=== PATIENT | male | born 1990 | race Hispanic/Latino ===

== ENCOUNTER 2018-10-28 01:09 | Emergency (ER) | payer OTHER ==
[~2018-10-28] VITALS: Ht 177.8 cm; Wt 122.5 kg
--- OUTSIDE RECORDS SUMMARY | 2018-10-28 01:12 | XMS REPORT | Clinical Summary ---
Author Author [facility] Organization [facility] Address Unknown Phone Unavailable Care Team Providers Care Toby Maker Name Role Phone PCP Unavailable Allergies No Known Allergies Medications Not on file Active Problems Not on file Encounters Care Team Description Date Type Specialty Kobi Gallardo MD Diarrhea, unspecified type (Primary Dx) 02/18/2018 Emergency Emergency Medicine after 10/27/2017 Social History Date Tobacco Use Types Packs/Day Years Used Never Assessed Sex Assigned at Date Recorded Not on file Industry Job Start Date Occupation Not on file Not on file Not on file Travel End Travel History Travel Start No recent travel history available. Last Filed Vital Signs Reading Time Taken Comments Vital Sign 125/78 02/18/2018 2:46 PM CDT Blood Pressure 62 02/18/2018 2:46 PM CDT Pulse 36.8 C (98.2 F) 02/18/2018 2:46 PM CDT Temperature 16 02/18/2018 2:46 PM CDT Respiratory Rate 99% 02/18/2018 2:46 PM CDT Oxygen Saturation - - Inhaled Oxygen Concentration 122.4 kg (269 lb 14.4 oz) 02/18/2018 8:47 AM CDT Weight - - Height - - Body Mass Index Plan of Treatment Health Maintenance Due Date Last Done Comments IMM Influenza Seasonal 02/24/2019Feb to July (>/=19 yrs) Procedures Comments Procedure Name Priority Date/Time Associated Diagnosis BEDSIDE ULTRASOUND Routine 02/18/2018 2:12 PM CDT HIV-1/HIV-2 ROUTINE Routine 02/18/2018 SCREENING 12:04 PM CDT CBC/DIFF STAT 02/18/2018 12:04 PM CDT FREE T4 STAT 02/18/2018 12:04 PM CDT THYROID STIMULATING STAT 02/18/2018 HORMONE (TSH) 12:04 PM CDT LIPASE STAT 02/18/2018 12:04 PM CDT LIVER PROFILE STAT 02/18/2018 12:04 PM CDT URINALYSIS STAT 02/18/2018 11:17 AM CDT after 10/27/2017 Results * BEDSIDE ULTRASOUND (02/18/2018 2:12 PM CDT) Narrative Performed At Cassandra Couch PA 02/18/20182:25 PM Bedside Ultrasound Date/Time: 02/18/2018 2:20 PM Performed by: CASSANDRA COUCH Authorized by: CASSANDRA COUCH Consent: Consent obtained:Verbal Consent given by:Patient Indications: Indications:Intermittent RUQ pain after eating Comments: RUQ ultrasound performed and interpreted by me w/o evidence of cholecystitis, stone shadowing though no stone in neck. No sludge, PCCF. CBD not visualized. * HIV-1/HIV-2 ROUTINE SCREENING (02/18/2018 12:04 PM CDT) HIV-1/HIV-2 Negative NEG [facility] 4 Specimen Performing Organization Address [facility] [place]ISYS [facility] MA[facility] 4 * TSH (02/18/2018 12:04 PM CDT) TSH 4.96 (H) 0.57 - 3.74 uIU/mL [facility]IN[facility] 1 Specimen Blood Performing Organization Address [facility] [place] Number MISYS [facility] 1 * FREE T4 (02/18/2018 12:04 PM CDT) Free T4 0.76 0.61 - 1.18 ng/dl [facility]IN[facility] 1 Specimen Blood Performing Organization Address [facility] [place] Number [facility]IS[facility] 1 * LIVER PROFILE (02/18/2018 12:04 PM CDT) Protein, Total, 8.2 6.4 - 8.2 g/dL [facility] Serum MAIN-STATION 2 Albumin 4.2 3.4 - 5.0 g/dL [facility] 2 Bilirubin, 0.4 0.2 - 1.0 mg/dL [facility] Total MAIN-STATION 2 Alkaline 77 45 - 117 U/L [facility] Phosphatase, S MAIN-STATION 2 AST (SGOT) 50 (H) 15 - 37 U/L [facility] 2 ALT 61 12 - 78 U/L [facility] MAIN-STATION 2 D Bilirubin <0.1 0.0 - 0.2 mg/dL [facility] MAIN-STATION 2 Specimen Blood Performing Organization Address [facility]/Zipcode Phone Number [facility] MAIN-STATION 2 * LIPASE (02/18/2018 12:04 PM CDT) Lipase 83 73 - 393 U/L [facility] MAIN-STATION 2 Specimen Blood Performing Organization Address [facility] Phone Number [facility] MA[facility] 2 * CBC/DIFF (02/18/2018 12:04 PM CDT) WBC 6.6 4.5 - 12.0 K/uL [facility] MAIN-STATION 2 RBC 5.13 4.60 - 6.20 M/uL [facility] MAIN-STATION 2 Hemoglobin 15.0 14.0 - 18.0 g/dL [facility] MAIN-[facility] 2 Hematocrit 46.2 40.0 - 54.0 % [facility] MAIN-STATION 2 MCV 90 82 - 92 fL [facility] MAIN-ST[facility] 2 MCH 29.2 27.0 - 31.0 pg [facility] MAIN-STATION 2 MCHC 32.5 32.0 - 36.0 g/dL [facility] MAIN-STATION 2 RDW 39.8 35.1 - 43.9 fL [facility] MAIN-STATION 2 Platelets 206 150 - 400 K/uL [facility] MAIN-STATION 2 Mean Platelet 10.2 9.4 - 12.4 fL [facility] Volume MAIN-STATION 2 Percent NRBC 0.0 [facility] MAIN-STATION 2 Absolute NRBC 0.00 [facility] MAIN-[facility] 2 Neutrophils 59.3 34.0 - 67.9 % [facility] MAIN-ST[facility] 2 Lymphs 27.3 21.8 - 50.0 % [facility] 2 Monocytes 9.4 5.3 - 12.0 % [facility] 2 Eos 2.9 0.8 - 5.0 % [facility] 2 Basos 0.3 0.2 - 1.2 % [facility] 2 Immature 0.8 (H) 0.0 - 0.5 [facility] Granulocytes MAIN-STATION 2 Neutrophils 3.93 1.78 - 5.36 K/uL [facility] (Absolute) MAIN-ST[facility] 2 Lymphs 1.81 1.32 - 3.57 K/uL [facility] (Absolute) MAIN-STATION 2 Monocytes(Absol 0.62 0.30 - 0.82 K/uL [facility] [place]) MAIN-ST[facility] 2 Eos (Absolute) 0.19 0.04 - 0.54 K/uL [facility]IN-[facility] 2 Baso (Absolute) 0.02 0.01 - 0.08 K/uL [facility] 2 Immature Grans 0.05 (H) 0.00 - 0.03 K/uL [facility] (Abs) MAIN-STATION 2 Specimen Blood Performing Organization Address [facility] [place] Number [facility] MAIN-STATION 2 * UA CHEMISTRIES (02/18/2018 11:17 AM CDT) Color Yellow [facility] 2 Clarity Cloudy [facility] 2 Specific 1.020 1.001 - 1.035 [facility] [place] MAIN-ST[facility] 2 pH 7.0 5 - 8 [facility] 2 Protein Negative NEG [facility] 2 Glucose Negative NEG [facility] 2 Ketones Negative NEG [facility] 2 Bilirubin Negative NEG [facility] 2 Nitrate Negative NEG [facility] 2 Urobilinogen,Se <1.0 0.2 - 1.0 EU/dL [facility] mi-Qn MAIN-STATION 2 Leukocyte Negative NEG [facility] 2 Occult Blood Negative NEG [facility] 2 Specimen Urine Performing Organization Address [facility] [place] Phone Number MISYS [facility] MAIN-STATION 2 after 10/27/2017
--- OUTSIDE RECORDS SUMMARY | 2018-10-28 01:12 | XMS REPORT | Clinical Summary ---
Author Author [facility] Organization [facility] Address Unknown Phone Unavailable Care Team Providers Care Informatica Mdm Architect Name Role Phone Sharpless PCP Allergies No Known Allergies Medications End Date Status Medication Sig Dispensed Refills Start Date 07/27/2018 naproxen (NAPROSYN) 500 Take 1 tablet 30 tablet 0 07/27/201 MG tablet (500 mg 8 total) by mouth 2 (two) times daily with breakfast and dinner. 08/17/2018 predniSONE (DELTASONE) 20 Take 2 6 tablet 0 08/14/201 MG tablet tablets (40 9 mg total) by mouth daily for 3 days. Active Problems Not on file Encounters Care Team Description Date Type Specialty Bo Solo MD Elevated blood pressure reading (Primary Dx); Obesity, unspecified classification, unspecified obesity type, unspecified whether serious comorbidity present 10/15/2018 Emergency Emergency Medicine 10/15/2018 Travel Manuel Hinson MD Exposure to chemical irritant (Primary Dx); Cough; Nasal congestion; Sore throat 08/14/2018 Emergency Emergency Medicine 08/14/2018 Travel after 10/27/2017 Social History Date Tobacco Use Types Packs/Day Years Used Current Every Day Smoker Smokeless Tobacco: Never Used Alcohol Use Drinks/Week oz/Week Comments Yes Sex Assigned at Date Recorded Not on file Industry Job Start Date Occupation Not on file Not on file Not on file Travel End Travel History Travel Start 08/14/2018 [facility] 07/17/2018 Last Filed Vital Signs Time Taken Vital Sign Reading 10/15/2018 7:27 PM CDT Blood Pressure 136/80 10/15/2018 7:27 PM CDT Pulse 82 10/15/2018 7:27 PM CDT Temperature 36.9 C (98.4 F) 10/15/2018 7:27 PM CDT Respiratory Rate 18 10/15/2018 7:27 PM CDT Oxygen Saturation 99% - Inhaled Oxygen - Concentration 10/15/2018 7:36 PM CDT Weight 123.4 kg (272 lb) 10/15/2018 7:36 PM CDT Height 177.8 cm (5' 10") 10/15/2018 7:36 PM CDT Body Mass Index 39.03 Plan of Treatment Not on file Results Not on fileafter 10/27/2017
--- OUTSIDE RECORDS SUMMARY | 2018-10-28 01:13 | XMS REPORT | Continuity of Care Document ---
Author Author [facility] Interface Address Unknown Phone Unavailable Problems Problem Status Onset Date Classification Date Reported Comments Source Diarrhea, unspecified type Active 08/18/2018 [facility] Medications Medication Details Route Status Patient Instructions Ordering Provider Order Date Source Allergies, Adverse Reactions, Alerts Substance Category Reaction Severity Reaction type Status Date Reported Comments Source Immunizations Immunization Date Given Site Status Last Updated Comments Source Results Order Name Results Value Reference Range Date Interpretation Comments Source FREE T4 Free T4 0.76 ng/dl 0.61 - 1.18 02/18/2018 [facility] TSH TSH 4.96 0.57 - 3.74 02/18/2018 [facility] TSH Lab Interpretation Abnormal 02/18/2018 [facility] HIV-1/HIV-2 ROUTINE SCREENING HIV-1/HIV-2 Negative NEG 02/18/2018 [facility] BEDSIDE ULTRASOUND <p>Cassandra Couch PA 02/18/20182:25 PM</p><p>Bedside Ultrasound</p><p>Date/Time: 02/18/2018 2:20 PM</p><p>Performed by: CASSANDRA COUCH</p><p>Authorized by: CASSANDRA COUCH </p><p> </p><p>Consent: </p><p>Consent obtained:Verbal</p><p>Consent given by:Patient</p><p>Indications: </p><p&gt ;Indications:Intermittent RUQ pain after eating</p><p>Comments: </p><p> RUQ ultrasound performed and interpreted by me w/o evidence of </p><p>cholecystitis, stone shadowing though no stone in neck. No sludge, PCCF. </p><p>CBD not visualized.</p> Cassandra Couch PA 02/18/20182:25 PM Bedside Ultrasound Date/Time: 02/18/2018 2:20 PM Performed by: CASSANDRA COUCH Authorized by: CASSANDRA COUCH Consent: Consent obtained:Verbal Consent given by:Patient Indications: Indications:Intermittent RUQ pain after eating Comments: RUQ ultrasound performed and interpreted by me w/o evidence of cholecystitis, stone shadowing though no stone in neck. No sludge, PCCF. CBD not visualized. 02/18/2018 [facility] LIPASE Lipase 83 U/L 73 - 393 02/18/2018 [facility] LIVER PROFILE T Protein 8.2 g/dL 6.4 - 8.2 02/18/2018 [facility] LIVER PROFILE Albumin 4.2 g/dL 3.4 - 5 02/18/2018 [facility] LIVER PROFILE T Bilirubin 0.4 mg/dL 0.2 - 1 02/18/2018 [facility] LIVER PROFILE Alk Phos 77 U/L 45 - 117 02/18/2018 [facility] LIVER PROFILE AST 50 U/L 15 - 37 02/18/2018 [facility] LIVER PROFILE ALT 61 U/L 12 - 78 02/18/2018 [facility] LIVER PROFILE D Bilirubin <0.1 0 - 0.2 02/18/2018 [facility] LIVER PROFILE Lab Interpretation Abnormal 02/18/2018 [facility] CBC/DIFF WBC 6.6 K/uL 4.5 - 12 02/18/2018 [facility] CBC/DIFF RBC 5.13 4.60 - 6.20 02/18/2018 [facility] CBC/DIFF Hemoglobin 15.0 g/dL 14 - 18 02/18/2018 [facility] CBC/DIFF Hematocrit 46.2 % 40 - 54 02/18/2018 [facility] CBC/DIFF MCV 90 fL 82 - 92 02/18/2018 [facility] CBC/DIFF MCH 29.2 pg 27 - 31 02/18/2018 [facility] CBC/DIFF MCHC 32.5 g/dL 32 - 36 02/18/2018 [facility] CBC/DIFF RDW 39.8 fL 35.1 - 43.9 02/18/2018 [facility] CBC/DIFF Platelet 206 K/uL 150 - 400 02/18/2018 [facility] CBC/DIFF Mean Platelet Volume 10.2 fL 9.4 - 12.4 02/18/2018 [facility] CBC/DIFF Percent NRBC 0.0 02/18/2018 [facility] CBC/DIFF Absolute NRBC 0.00 02/18/2018 [facility] CBC/DIFF Neutrophil 59.3 % 34 - 67.9 02/18/2018 [facility] CBC/DIFF Lymphocyte 27.3 % 21.8 - 50 02/18/2018 [facility] CBC/DIFF Monocyte 9.4 % 5.3 - 12 02/18/2018 [facility] CBC/DIFF Eosinophil 2.9 % 0.8 - 5 02/18/2018 [facility] CBC/DIFF Basophil 0.3 % 0.2 - 1.2 02/18/2018 [facility] CBC/DIFF Pct Immat Gran 0.8 0.0 - 0.5 02/18/2018 [facility] CBC/DIFF Neutrophil, Abs 3.93 K/uL 1.78 - 5.36 02/18/2018 [facility] CBC/DIFF Lymphocyte, Abs 1.81 K/uL 1.32 - 3.57 02/18/2018 [facility] CBC/DIFF Monocyte, Abs 0.62 K/uL 0.3 - 0.82 02/18/2018 [facility] CBC/DIFF Eosinophil, Abs 0.19 K/uL 0.04 - 0.54 02/18/2018 [facility] CBC/DIFF Basophil, Abs 0.02 K/uL 0.01 - 0.08 02/18/2018 [facility] CBC/DIFF Absol Immat Gran 0.05 K/uL 0 - 0.03 02/18/2018 [facility] CBC/DIFF Lab Interpretation Abnormal 02/18/2018 [facility] UA CHEMISTRIES Color Yellow 02/18/2018 [facility] UA CHEMISTRIES Clarity Cloudy 02/18/2018 [facility] UA CHEMISTRIES Spec [place] 1.020 1.001 - 1.035 02/18/2018 [facility] UA CHEMISTRIES pH 7.0 5 - 8 02/18/2018 [facility] UA CHEMISTRIES Protein Negative NEG 02/18/2018 [facility] UA CHEMISTRIES Glucose Negative NEG 02/18/2018 [facility] UA CHEMISTRIES Ketone Negative NEG 02/18/2018 [facility] UA CHEMISTRIES Bilirubin Negative NEG 02/18/2018 [facility] UA CHEMISTRIES Nitrate Negative NEG 02/18/2018 [facility] UA CHEMISTRIES Urobilinogen <1.0 0.2 - 1 02/18/2018 [facility] UA CHEMISTRIES Leukocyte Negative NEG 02/18/2018 [facility] UA CHEMISTRIES Blood Negative NEG 02/18/2018 [facility] Vital Signs Vital Sign Value Date Comments Source Systolic (mm Hg) 125 02/18/2018 [facility] Diastolic (mm Hg) 78 02/18/2018 [facility] Heart Rate 62 02/18/2018 [facility] Temperature Oral (F) 36.78 Rupal 02/18/2018 [facility] Respitory Rate 16 02/18/2018 [facility] Systolic (mm Hg) 143 02/18/2018 [facility] Diastolic (mm Hg) 99 02/18/2018 [facility] Heart Rate 67 02/18/2018 [facility] Temperature Oral (F) 36.89 Rupal 02/18/2018 [facility] Respitory Rate 18 02/18/2018 [facility] Weight 122.426 02/18/2018 [facility] Encounters Location Location Details Encounter Type Encounter Number Reason For Visit Attending Provider ADM Date DC Date Status Source Emergency [facility] ([id number] Emergency [id number] Kobi Gallardo MD 02/18/2018 02/18/2018 [facility] Procedures Procedure Code Date Perfomer Comments Source BEDSIDE ULTRASOUND [id number] 02/19/2018 [facility] LIVER PROFILE [id number] 02/18/2018 [facility] LIPASE [id number] 02/18/2018 [facility] TSH [id number] 02/18/2018 [facility] FREE T4 [id number] 02/18/2018 [facility] CBC/DIFF [id number] 02/18/2018 [facility] HIV-1/HIV-2 ROUTINE SCREENING [id number] 02/18/2018 [facility] UA CHEMISTRIES [id number] 02/18/2018 [facility]
--- OUTSIDE RECORDS SUMMARY | 2018-10-28 01:13 | XMS REPORT | Clinical Summary ---
Author Author [facility] Organization [facility] Address Unknown Phone Unavailable Care Team Providers Care Gas Pumping Station Helper Name Role Phone PCP Unavailable Allergies No Known Allergies Current Medications Not on file Active Problems Not on file Encounters Date Type Specialty Care Team Description 02/18/2018 Emergency Emergency Medicine Kobi Gallardo MD Diarrhea, unspecified type (Primary Dx) after 02/19/2017 Social History Tobacco Use Types Packs/Day Years Used Date Never Assessed Sex Assigned at Date Recorded Not on file Last Filed Vital Signs Vital Sign Reading Time Taken Blood Pressure 125/78 02/18/2018 2:46 PM CDT Pulse 62 02/18/2018 2:46 PM CDT Temperature 36.8 C (98.2 F) 02/18/2018 2:46 PM CDT Respiratory Rate 16 02/18/2018 2:46 PM CDT Oxygen Saturation 99% 02/18/2018 2:46 PM CDT Inhaled Oxygen - - Concentration Weight 122.4 kg (269 lb 14.4 oz) 02/18/2018 8:47 AM CDT Height - - Body Mass Index - - Plan of Treatment Health Maintenance Due Date Last Done Comments IMM Influenza Seasonal 02/24/2018Feb to July (>/=19 yrs) Procedures Procedure Name Priority Date/Time Associated Diagnosis Comments BEDSIDE ULTRASOUND Routine 02/18/2018 Results for this 2:12 PM CDT procedure are in the results section. HIV-1/HIV-2 ROUTINE Routine 02/18/2018 Results for this SCREENING 12:04 PM CDT procedure are in the results section. CBC/DIFF STAT 02/18/2018 Results for this 12:04 PM CDT procedure are in the results section. FREE T4 STAT 02/18/2018 Results for this 12:04 PM CDT procedure are in the results section. TSH STAT 02/18/2018 Results for this 12:04 PM CDT procedure are in the results section. LIPASE STAT 02/18/2018 Results for this 12:04 PM CDT procedure are in the results section. LIVER PROFILE STAT 02/18/2018 Results for this 12:04 PM CDT procedure are in the results section. UA CHEMISTRIES STAT 02/18/2018 Results for this 11:17 AM CDT procedure are in the results section. after 02/19/2017 Results * BEDSIDE ULTRASOUND (02/18/2018 2:12 PM) Narrative Performed At Cassandra Couch PA 02/18/20182:25 [...] visualized. * HIV-1/HIV-2 ROUTINE SCREENING (02/18/2018 12:04 PM) HIV-1/HIV-2 Negative NEG [facility] MAIN-STATION 4 Performing Organization Address [facility] [place] Phone Number MISYS [facility] MAIN-STATION 4 * TSH (02/18/2018 12:04 PM) TSH 4.96 (H) 0.57 - 3.74 uIU/mL [facility] MAIN-STATION 1 Specimen Blood Performing Organization Address [facility] [place] Phone Number MISYS [facility] MAIN-STATION 1 * FREE T4 (02/18/2018 12:04 PM) Free T4 0.76 0.61 - 1.18 ng/dl [facility] MAIN-STATION 1 Specimen Blood Performing Organization Address [facility] [place] Phone Number MISYS [facility] 1 * LIVER PROFILE (02/18/2018 12:04 PM) T Protein 8.2 6.4 - 8.2 g/dL [facility] MAIN-STATION 2 Albumin 4.2 3.4 - 5.0 g/dL [facility] MAIN-ST[facility] 2 T Bilirubin 0.4 0.2 - 1.0 mg/dL [facility] MAIN-ST[facility] 2 Alk Phos 77 45 - 117 U/L [facility] MAIN-STATION 2 AST 50 (H) 15 - 37 U/L [facility] MAIN-STATION 2 ALT 61 12 - 78 U/L [facility] MAIN[facility] 2 D Bilirubin <0.1 0.0 - 0.2 mg/dL [facility] MAIN[facility] 2 Specimen Blood Performing Organization Address [facility] * LIPASE (02/18/2018 12:04 PM) Lipase 83 73 - 393 U/L [facility] 2 Specimen Blood Performing Organization Address [facility] Phone [facility] 2 * CBC/DIFF (02/18/2018 12:04 PM) WBC 6.6 4.5 - 12.0 K/uL [facility] 2 RBC 5.13 4.60 - 6.20 M/uL [facility] [place] [facility] Hemoglobin 15.0 14.0 - 18.0 g/dL [facility] [place] 2 Hematocrit 46.2 40.0 - 54.0 % [facility] 2 MCV 90 82 - 92 fL [facility] [place] 2 MCH 29.2 27.0 - 31.0 pg [facility] [place] 2 MCHC 32.5 32.0 - 36.0 g/dL [facility] [place] 2 RDW 39.8 35.1 - 43.9 fL [facility] MAINSTATION 2 Platelet 206 150 - 400 K/uL [facility] [place] 2 Mean Platelet Volume 10.2 9.4 - 12.4 fL [facility] MAINSTATION 2 Percent NRBC 0.0 [facility]INST[facility] 2 Absolute NRBC 0.00 [facility] 2 Neutrophil 59.3 34.0 - 67.9 % [facility] MAIN-ST[facility] 2 Lymphocyte 27.3 21.8 - 50.0 % [facility] MAIN[facility] 2 Monocyte 9.4 5.3 - 12.0 % [facility] MAIN-ST[facility] 2 Eosinophil 2.9 0.8 - 5.0 % [facility] MAIN-ST[facility] 2 Basophil 0.3 0.2 - 1.2 % [facility] 2 Pct Immat Gran 0.8 (H) 0.0 - 0.5 [facility] MAIN-STATION 2 Neutrophil, Abs 3.93 1.78 - 5.36 K/uL [facility]IN[facility] 2 Lymphocyte, Abs 1.81 1.32 - 3.57 K/uL [facility] 2 Monocyte, Abs 0.62 0.30 - 0.82 K/uL [facility] 2 Eosinophil, Abs 0.19 0.04 - 0.54 K/uL [facility] 2 Basophil, Abs 0.02 0.01 - 0.08 K/uL [facility] 2 Absol Immat Gran 0.05 (H) 0.00 - 0.03 K/uL [facility] 2 Specimen Blood Performing Organization Address [facility] Phone Number [facility] MAIN-STATION 2 * UA CHEMISTRIES (02/18/2018 11:17 AM) Color Yellow [facility] 2 Clarity Cloudy [facility] 2 Spec [place] 1.020 1.001 - 1.035 [facility] 2 pH 7.0 5 - 8 [facility] 2 Protein Negative NEG [facility] 2 Glucose Negative NEG [facility] 2 Ketone Negative NEG [facility] 2 Bilirubin Negative NEG [facility] 2 Nitrate Negative NEG [facility] 2 Urobilinogen <1.0 0.2 - 1.0 EU/dL [facility] 2 Leukocyte Negative NEG [facility] 2 Blood Negative NEG [facility] 2 Specimen Urine Performing Organization Address [facility] Phone Number [facility] MAIN-STATION 2 after 02/19/2017
--- OUTSIDE RECORDS SUMMARY | 2018-10-28 01:13 | XMS REPORT ---
[facility] Address Unknown Phone Unavailable Care Team Providers Care Dipper And Baker Name Role Phone ALVA ZHENG Unavailable Unavailable REBEKAH, WILL Unavailable Unavailable Payers Payer Name Policy Type Policy Number Effective Date Expiration Date Problems This patient has no known problems. Allergies, Adverse Reactions, Alerts Allergy Name Allergy Type Status Severity Reaction(s) Onset Date Inactive Date Treating Clinician Comments No Known Allergies DA Active U 2018-04-18 00:00:00 No Known Contrast Allergies DA Active U 2005-02-13 00:00:00 No Known Drug Allergies DA Active U 2005-02-13 00:00:00 No Known Food Allergies DA Active U 2005-02-13 00:00:00 No Known Other Allergies DA Active U 2005-02-13 00:00:00 Medications This patient has no known medications. Encounters Start Date/Time End Date/Time Encounter Type Admission Type Attending Clinicians Care Facility Care Department Encounter ID 2018-02-18 11:04:36 2018-02-18 11:04:36 Emergency [facility] MED [id number] Results Test Description Test Time Test Comments Text Results Atomic Results Result Comments RAD, FOOT, MIN 3 VIEWS, LEFT 2017-07-27 05:07:00 Reason for exam:->FOOT PAINReason for exam:->dog bite 18 hours ago, worsening pain and swellingShould this be performed at the bedside?->No FINAL REPORT RAD, FOOT, MIN 3 VIEWS, LEFT CLINICAL INDICATION: Dog bite 18 hours ago with worsening foot pain and swelling. COMPARISON: None FINDINGS: Frontal, oblique and lateral views of the left foot were obtained. There is mild diffuse swelling soft tissue swelling. There are small soft tissue lucencies in the dorsum and lateral aspect of the foot, which may represent gas. There is no radiographic evidence for osteomyelitis. There is no acute fracture or dislocation. The joint spaces are maintained. IMPRESSION: Mild diffuse swelling soft tissue swelling. Small soft tissue lucencies in the dorsum and lateral aspect of the foot, which may represent gas. No acute fracture. Signed: Gladys Berryort Verified Date/Time: 07/27/2017 05:07:00 Reading Location: [facility] C0T Transitional Reading Room , CHEST, 2 VIEWS 2017-06-20 15:38:00 Reason for exam:->coughShould this be performed at the bedside?->No FINAL REPORT CLINICAL HISTORY: cough TECHNIQUE: 2 views of the chest COMPARISON: None IMPRESSION: There are no focal infiltrates or effusions. The cardiomediastinal silhouette is within normal limits for size. The osseous structures appear intact. Signed: Zoran Barreto Verified Date/Time: 06/20/2017 15:38:23 Reading Location: [facility] C013W Consult Reading Room REHENSIVE METABOLIC PANEL 2016-12-18 22:38:00 TOTAL PROTEIN (BEAKER) (test ylts=341) 7.0 gm/dL 6.0-8.5 ALBUMIN (BEAKER) (test edop=2640) 4.0 g/dL 3.5-5.0 ALKALINE PHOSPHATASE (BEAKER) (test liko=468) 84 U/L 30-115 BILIRUBIN TOTAL (BEAKER) (test fvtl=429) 0.3 mg/dL 0.1-1.2 SODIUM (BEAKER) (test lken=681) 141 meq/L 135-148 POTASSIUM (BEAKER) (test qtmy=633) 4.2 meq/L 3.6-5.5 CHLORIDE (BEAKER) (test pucm=289) 105 meq/L 98-106 CO2 (BEAKER) (test szcb=227) 27 meq/L 24-32 BLOOD UREA NITROGEN (BEAKER) (test zfxv=014) 10 mg/dL 10-26 CREATININE (BEAKER) (test kicx=716) 0.73 mg/dL 0.50-1.20 GLUCOSE RANDOM (BEAKER) (test hwku=411) 94 mg/dL 70-110 CALCIUM (BEAKER) (test xnop=551) 8.5 mg/dL 8.5-10.5 AST (SGOT) (BEAKER) (test fqpe=883) 31 U/L 5-40 ALT (SGPT) (BEAKER) (test quog=001) 52 U/L 5-50 EGFR (BEAKER) (test ohyk=5761) mL/min/1.73 sq m INSUFFICIENT CLINICAL DATA TO CALCULATE ESTIMATED GFR. [id number] 22:36:00* Test Item Value Reference Range Comments LIPASE (BEAKER) (test qply=351) 62 U/L 40-240 CBC W/PLT COUNT & AUTO [id number] 22:26:00* Test Item Value Reference Range Comments WHITE BLOOD CELL COUNT (BEAKER) (test vehb=280) 8.1 10e3/ L 4.0-10.0 RED BLOOD CELL COUNT (BEAKER) (test ubov=418) 4.96 10e6/ L 4.20-5.80 HEMOGLOBIN (BEAKER) (test xjio=479) 14.5 g/dL 13.0-16.8 HEMATOCRIT (BEAKER) (test zrhr=766) 43.9 % 40.0-50.0 MEAN CORPUSCULAR VOLUME (BEAKER) (test qbrc=374) 88.4 fL 82.0-98.0 MEAN CORPUSCULAR HEMOGLOBIN (BEAKER) (test lnrv=895) 29.2 pg 27.0-33.0 MEAN CORPUSCULAR HEMOGLOBIN CONC (BEAKER) (test lnnx=138) 33.1 g/dL 32.0-36.0 RED CELL DISTRIBUTION WIDTH (BEAKER) (test nlbr=870) 12.0 % 10.3-14.2 PLATELET COUNT (BEAKER) (test gnan=153) 215 10e3/ L 150-430 MEAN PLATELET VOLUME (BEAKER) (test vmyd=752) 7.3 fL 6.5-10.5 NEUTROPHILS RELATIVE PERCENT (BEAKER) (test lyue=278) 49 % LYMPHOCYTES RELATIVE PERCENT (BEAKER) (test grpr=360) 36 % MONOCYTES RELATIVE PERCENT (BEAKER) (test vikc=244) 10 % EOSINOPHILS RELATIVE PERCENT (BEAKER) (test mfqo=603) 5 % BASOPHILS RELATIVE PERCENT (BEAKER) (test itsm=556) 1 % NEUTROPHILS ABSOLUTE COUNT (BEAKER) (test yutk=115) 3.95 10e3/ L 1.80-8.00 LYMPHOCYTES ABSOLUTE COUNT (BEAKER) (test tivf=559) 2.93 10e3/ L 1.48-4.50 MONOCYTES ABSOLUTE COUNT (BEAKER) (test qtvd=086) 0.78 10e3/ L 0.00-1.30 EOSINOPHILS ABSOLUTE COUNT (BEAKER) (test arbt=009) 0.41 10e3/ L 0.00-0.50 BASOPHILS ABSOLUTE COUNT (BEAKER) (test emub=776) 0.07 10e3/ L 0.00-0.20 MONONUCLEOSIS [id number] 19:54:00* Test Item Value Reference Range Comments HETEROPHILE ANTIBODIES (BEAKER) (test ejzd=063) Negative Negative RAPID STREP A [id number] 19:16:00* Test Item Value Reference Range Comments STREP A ANTIGEN (BEAKER) (test jpbm=235) Positive Negative
--- OUTSIDE RECORDS SUMMARY | 2018-10-28 01:13 | XMS REPORT | Clinical Summary ---
Author Author [facility] Organization [facility] Address Unknown Phone Unavailable Care Team Providers Care Parts Remover Name Role Phone PCP Unavailable Allergies No Known Allergies Medications Not on file Active Problems Not on file Encounters Care Team Description Date Type Specialty Kobi Gallardo MD Diarrhea, unspecified type (Primary Dx) 02/18/2018 Emergency Emergency Medicine after 08/17/2017 Social History Date Tobacco Use Types Packs/Day Years Used Never Assessed Sex Assigned at Date Recorded Not on file Industry Job Start Date Occupation Not on file Not on file Not on file Travel End Travel History Travel Start No recent travel history available. Last Filed Vital Signs Time Taken Vital Sign Reading 02/18/2018 2:46 PM CDT Blood Pressure 125/78 02/18/2018 2:46 PM CDT Pulse 62 02/18/2018 2:46 PM CDT Temperature 36.8 C (98.2 F) 02/18/2018 2:46 PM CDT Respiratory Rate 16 02/18/2018 2:46 PM CDT Oxygen Saturation 99% - Inhaled Oxygen - Concentration 02/18/2018 8:47 AM CDT Weight 122.4 kg (269 lb 14.4 oz) - Height - - Body Mass Index - Plan of Treatment Health Maintenance Due Date Last Done Comments IMM Influenza Seasonal 02/24/2018 Oct to July (>/=19 yrs) Procedures Comments Procedure Name Priority Date/Time Associated Diagnosis BEDSIDE ULTRASOUND Routine 02/18/2018 2:12 PM CDT HIV-1/HIV-2 ROUTINE Routine 02/18/2018 SCREENING 12:04 PM CDT CBC/DIFF STAT 02/18/2018 12:04 PM CDT FREE T4 STAT 02/18/2018 12:04 PM CDT TSH STAT 02/18/2018 12:04 PM CDT LIPASE STAT 02/18/2018 12:04 PM CDT LIVER PROFILE STAT 02/18/2018 12:04 PM CDT UA CHEMISTRIES STAT 02/18/2018 11:17 AM CDT after 08/17/2017 Results * BEDSIDE ULTRASOUND (02/18/2018 2:12 PM [...] CDT) HIV-1/HIV-2 Negative NEG [facility] MAIN-STATION 4 Performing Organization Address [facility] [place] Number [facility] MAIN-STATION 4 * TSH (02/18/2018 12:04 PM CDT) TSH 4.96 (H) 0.57 - 3.74 uIU/mL BT MAIN-STATION 1 Specimen Blood Performing Organization Address [facility] Phone Number M[facility]YS [facility] MAIN-STATION 1 * FREE T4 (02/18/2018 12:04 PM CDT) Free T4 0.76 0.61 - 1.18 ng/dl [facility] MAIN-STATION 1 Specimen Blood Performing Organization Address [facility] Phone Number MISYS [facility] MAIN-STATION 1 * LIVER PROFILE (02/18/2018 12:04 PM CDT) T Protein 8.2 6.4 - 8.2 g/dL J MAIN-STATION 2 Albumin 4.2 3.4 - 5.0 g/dL [facility] MAIN-STATION 2 T Bilirubin 0.4 0.2 - 1.0 mg/dL [facility] MAIN-STATION 2 Alk Phos 77 45 - 117 U/L [facility]IN-STATION 2 AST 50 (H) 15 - 37 U/L [facility]IN-STATION 2 ALT 61 12 - 78 U/L [facility] MAIN-STATION 2 D Bilirubin <0.1 0.0 - 0.2 mg/dL [facility] MAIN-STATION 2 Specimen Blood Performing Organization Address City/[facility]/Zipcode Phone Number [facility] MAIN-STATION 2 * LIPASE (02/18/2018 12:04 PM CDT) Lipase 83 73 - 393 U/L LB MAIN-STATION 2 Specimen Blood Performing Organization Address City/[facility]/Zipcode Phone Number [facility] MAIN-STATION 2 * CBC/DIFF (02/18/2018 12:04 PM CDT) WBC 6.6 4.5 - 12.0 K/uL [facility] MAIN-STATION 2 RBC 5.13 4.60 - 6.20 M/uL [facility] MAIN-STATION 2 Hemoglobin 15.0 14.0 - 18.0 g/dL [facility] MAIN-STATION 2 Hematocrit 46.2 40.0 - 54.0 % [facility] MAIN-STATION 2 MCV 90 82 - 92 fL [facility] MAIN-STATION 2 MCH 29.2 27.0 - 31.0 pg [facility] MAIN-STATION 2 MCHC 32.5 32.0 - 36.0 g/dL [facility] MAIN-STATION 2 RDW 39.8 35.1 - 43.9 fL [facility] MAIN-STATION 2 Platelet 206 150 - 400 K/uL LB MAIN-STATION 2 Mean Platelet 10.2 9.4 - 12.4 fL [facility] Volume MAIN-STATION 2 Percent NRBC 0.0 [facility]IN-STATION 2 Absolute NRBC 0.00 [facility]-STATION 2 Neutrophil 59.3 34.0 - 67.9 % [facility] 2 Lymphocyte 27.3 21.8 - 50.0 % [facility]-STATION 2 Monocyte 9.4 5.3 - 12.0 % [facility]IN-STATION 2 Eosinophil 2.9 0.8 - 5.0 % [facility]-STATION 2 Basophil 0.3 0.2 - 1.2 % [facility]IN-STATION 2 Pct Immat Gran 0.8 (H) 0.0 - 0.5 [facility] MAIN-STATION 2 Neutrophil, Abs 3.93 1.78 - 5.36 K/uL [facility] MAIN-STATION 2 Lymphocyte, Abs 1.81 1.32 - 3.57 K/uL [facility] MAIN-STATION 2 Monocyte, Abs 0.62 0.30 - 0.82 K/uL [facility] MAIN-STATION 2 Eosinophil, Abs 0.19 0.04 - 0.54 K/uL [facility] MAIN-STATION 2 Basophil, Abs 0.02 0.01 - 0.08 K/uL [facility] MAIN-STATION 2 Absol Immat 0.05 (H) 0.00 - 0.03 K/uL [facility] Gran MAIN-STATION 2 Specimen Blood Performing Organization Address [place]/[facility] Phone [facility] MAIN-STATION 2 * UA CHEMISTRIES (02/18/2018 11:17 AM CDT) Color Yellow [facility] MAIN-STATION 2 Clarity Cloudy [facility] MAIN-STATION 2 Spec [place] 1.020 1.001 - 1.035 [facility] MAIN-STATION 2 [...] MAIN-STATION 2 Specimen Urine Performing Organization Address [place]/[facility] Phone Number [facility] MAIN-STATION 2 after 08/17/2017
--- OUTSIDE RECORDS SUMMARY | 2018-10-28 01:13 | XMS REPORT | Clinical Summary ---
Author Author [facility] Organization [facility] Address Unknown Phone Unavailable Care Team Providers Care Unpaid Intern Name Role Phone PCP Unavailable Allergies No Known Allergies Current Medications Not on file Active Problems Not on file Encounters Date Type Specialty Care Team Description 02/18/2018 Emergency Emergency Medicine after 02/17/2017 Social History Tobacco Use Types Packs/Day Years Used Date Never Assessed Sex Assigned at Date Recorded Not on file Last Filed Vital Signs Vital Sign Reading Time Taken Blood Pressure 143/99 02/18/2018 8:47 AM CDT Pulse 67 02/18/2018 8:47 AM CDT Temperature 36.9 C (98.4 F) 02/18/2018 8:47 AM CDT Respiratory Rate 18 02/18/2018 8:47 AM CDT Oxygen Saturation 99% 02/18/2018 8:47 AM CDT Inhaled Oxygen - - Concentration Weight 122.4 kg (269 lb 14.4 oz) 02/18/2018 8:47 AM CDT Height - - Body Mass Index - - Plan of Treatment Health Maintenance Due Date Last Done Comments IMM Influenza Seasonal 02/24/2018Feb to July (>/=19 yrs) Results Not on fileafter 02/17/2017
[2018-10-28 01:59] LABS: BASOPHILS % 0.3 % (0.0-1.0); EOSINOPHILS # (AUTO) 0.3 (0.0-0.4); EOSINOPHILS % 3.7 % (0.0-6.0); HEMATOCRIT 42.3 % (38.2-49.6); HEMOGLOBIN 14.5 g/dL (14.0-18.0); LYMPHOCYTES % 44.2 % (18.0-39.1); MEAN CORPUSCULAR HEMOGLOBIN 29.8 pg (28-32); MEAN CORPUSCULAR HGB CONC 34.3 g/dL (31-35); MEAN CORPUSCULAR VOLUME 86.9 fL (81-99); MONOCYTES # (AUTO) 0.7 (0.2-0.8); MONOCYTES % 11.1 % (4.4-11.3); NEUTROPHILS # (AUTO) 2.7 (2.1-6.9); NEUTROPHILS % 40.1 % (38.7-80.0); PLATELET COUNT 227 x10e3/uL (140-360); RED BLOOD COUNT 4.87 x10e6/uL (4.3-5.7); RED CELL DISTRIBUTION WIDTH 12.3 % (11.7-14.4)
[2018-10-28 02:18] LABS: ALANINE AMINOTRANSFERASE 96 IU/L (0-55); ALBUMIN 3.8 g/dL (3.5-5.0); ALBUMIN/GLOBULIN RATIO 1.2 (0.8-2.0); ALKALINE PHOSPHATASE 74 IU/L (40-150); ANION GAP 10.6 mmol/L (8-16); BLOOD UREA NITROGEN 10 mg/dL (7-26); BUN/CREATININE RATIO 15 (6-25); CALCIUM 9.1 mg/dL (8.4-10.2); CARBON DIOXIDE 24 mmol/L (22-29); CHLORIDE 105 mmol/L (98-107); CREATINE KINASE 131 IU/L (30-200); CREATININE, SERUM 0.68 mg/dL (0.72-1.25); EST GLOMERULAR FILTRATION RATE > 60 ML/MIN (60-); GLUCOSE 105 mg/dL (74-118); POTASSIUM 3.6 mmol/L (3.5-5.1); SODIUM 136 mmol/L (136-145)
--- NOTE | 2018-10-28 02:36 | Diagnostic Imaging Report ---
EXAMINATION: CHEST SINGLE (PORTABLE) INDICATION: ^CHEST PAIN ^[id number] ^0207 ^Y COMPARISON: None FINDINGS: AP view TUBES and LINES: None. LUNGS: Limited by body habitus and low lung volumes. There is no evidence of pneumonia or pulmonary edema. PLEURA: No pleural effusion or pneumothorax. HEART AND MEDIASTINUM: The cardiomediastinal silhouette is unremarkable for the technique. BONES AND SOFT TISSUES: No acute osseous lesion. Soft tissues are unremarkable. UPPER ABDOMEN: No free air under the diaphragm. IMPRESSION: No acute thoracic abnormality. Signed by: Dr. Johnathan Langston MD on 10/28/2018 2:33 AM
[2018-10-28 03:32] LABS: BILIRUBIN,URINE NEGATIVE (NEGATIVE); CLARITY,URINE CLOUDY (CLEAR); COLOR,URINE YELLOW (YELLOW); KETONES,URINE NEGATIVE (NEGATIVE); LEUKOCYTE ESTERASE ,URINE NEGATIVE (NEGATIVE); NITRITE,URINE NEGATIVE (NEGATIVE); PROTEIN,URINE DIPSTICK NEGATIVE (NEGATIVE); URINE UROBILINOGEN 0.2 mg/dL (0.2 - 1)
[2018-10-28 03:37] LABS: AMPHETAMINES SCREEN,URINE NEGATIVE (NEGATIVE); BENZODIAZEPINES SCREEN,URINE POSITIVE (NEGATIVE); PHENCYCLIDINE SCREEN,URINE NEGATIVE (NEGATIVE)
[2018-10-28 03:45] LABS: AMORPHOUS SEDIMENT,URINE MANY (FEW); BACTERIA,URINE MANY /HPF; EPITHELIAL CELLS,URINE FEW /LPF; RBC,URINE 0-5 /HPF (0-5)
[2018-10-28] MEDS ORDERED: SODIUM CHLORIDE 0.9% 50ML 50 ML ONE (04:23)
[2018-10-28] MEDS ORDERED: IOPAMIDOL 370 MG/ML 200 ML INFUS..BTL INJ ONE (04:23)
--- NOTE | 2018-10-28 05:07 | Diagnostic Imaging Report ---
EXAM: CT Chest WITH contrast (PE Protocol) INDICATION: ^pe protocol ^[id number] ^0425 ^Y COMPARISON: Same day chest x-ray TECHNIQUE: Chest was scanned utilizing a multidetector helical scanner from the lung apex through the level of the diaphragm after administration of IV contrast. Thin section reconstructions were obtained with special concentration on the pulmonary arteries. Coronal and sagittal reformations were obtained. Dose modulation, iterative reconstruction, and/or weight based adjustment of the mA/kV was utilized to reduce the radiation dose to as low as reasonably achievable. Pulmonary embolism protocol was performed. IV CONTRAST: 100 mL of Omnipaque 370 COMPLICATIONS: None RADIATION DOSE: Total DLP: 641 mGy*cm Estimated effective dose: (DLP x 0.014 x size factor) mSv CTDIvol has been reviewed. It is below the limits set by the Radiation Protocol Committee (RPC). FINDINGS: LINES/ TUBES: None. LUNGS AND AIRWAYS: No filling defect is identified within the pulmonary arteries to the segmental level. Mild interstitial edema. Airways are normal. PLEURA: The pleural spaces are clear. HEART AND MEDIASTINUM: The thyroid gland is normal. No mediastinal, hilar or axillary lymphadenopathy. The heart is normal in size.. There is no pericardial effusion. . Main pulmonary artery measures 3.6 cm in diameter and the ascending aorta measures 3.4 cm. UPPER ABDOMEN: Unremarkable BONES: The visualized bony thorax is within normal limits. SOFT TISSUES: Unremarkable. IMPRESSION: No pulmonary emboli. Mild interstitial edema. Signed by: Dr. Johnathan Langston MD on 10/28/2018 5:04 AM
[2018-10-28 06:33] VITALS: BP 109/68
== END 2018-10-28 07:01 | disposition home or self-care (01) ==
LOC: ER 01:09
DX: R07.89 Other chest pain (principal); F41.9 Anxiety disorder, unspecified; R01.1 Cardiac murmur, unspecified
CPT/HCPCS: 36415; 71045; 71260; 80053; 80307; 81001; 82550; 82553; 84484; 85025; 85379; 93005; 99283; Q9967

== ENCOUNTER 2018-11-01 01:48 | Emergency (ER) | payer OTHER ==
[~2018-11-01] VITALS: Ht 177.8 cm; Wt 122.5 kg
--- OUTSIDE RECORDS SUMMARY | 2018-11-01 01:51 | XMS REPORT | Clinical Summary ---
Author Author [facility] Organization [facility] Address Unknown Phone Unavailable Care Team Providers Care Hand Expansion Envelope Maker Name Role Phone PCP Unavailable Allergies No Known Allergies Medications Not on file Active Problems Not on file Encounters Care Team Description Date Type Specialty Kobi Gallardo MD Diarrhea, unspecified type (Primary Dx) 02/18/2018 Emergency Emergency Medicine after 10/31/2017 Social History Date Tobacco Use Types Packs/Day [...] URINALYSIS STAT 02/18/2018 11:17 AM CDT after 10/31/2017 Results * BEDSIDE ULTRASOUND (02/18/2018 2:12 PM [...] [facility] 4 Specimen Performing Organization Address [facility] [place] Phone Number MISYS [facility] MAIN-STATION 4 * TSH (02/18/2018 12:04 PM CDT) TSH 4.96 (H) 0.57 - 3.74 uIU/mL BT MAIN-STATION 1 Specimen Blood Performing Organization Address [facility] Phone Number MISYS MAIN-STATION 1 * FREE T4 (02/18/2018 12:04 PM CDT) Free T4 0.76 0.61 - 1.18 ng/dl BT MAIN-STATION 1 Specimen Blood Performing Organization Address [facility] Phone Number MISYS MAIN-STATION 1 * LIVER PROFILE (02/18/2018 12:04 PM CDT) Protein, Total, 8.2 6.4 - 8.2 g/dL [facility] Serum MAIN-STATION 2 Albumin 4.2 [...] MAIN-STATION 2 Specimen Blood Performing Organization Address [facility]/Zipcode Phone Number [facility] MAIN-STATION 2 * LIPASE (02/18/2018 12:04 PM CDT) Lipase 83 73 - 393 U/L [facility] MAIN-STATION 2 Specimen Blood Performing Organization Address [facility] Phone Number [facility] MAIN-STATION 2 * CBC/DIFF (02/18/2018 12:04 PM CDT) WBC 6.6 4.5 - 12.0 K/uL [facility] MAIN-STATION 2 RBC 5.13 4.60 - 6.20 M/uL [facility] MAIN-STATION 2 Hemoglobin 15.0 14.0 - 18.0 g/dL [facility] MAIN-STATION 2 Hematocrit 46.2 40.0 - 54.0 % [facility] MAIN-STATION 2 MCV 90 82 - 92 fL [facility] MAIN-STATION 2 MCH 29.2 27.0 - 31.0 pg [facility] MAIN-STATION 2 MCHC 32.5 32.0 - 36.0 g/dL [facility] MAIN-STATION 2 RDW 39.8 35.1 - 43.9 fL [facility] MAIN-STATION 2 Platelets 206 150 - 400 K/uL [facility] MAIN-STATION 2 Mean Platelet 10.2 [...] Monocytes(Absol 0.62 0.30 - 0.82 K/uL [facility] [place]) MAIN-STATION 2 Eos (Absolute) 0.19 0.04 - 0.54 K/uL [facility] MAIN-STATION 2 Baso (Absolute) 0.02 0.01 - 0.08 K/uL [facility] MAIN-STATION 2 Immature Grans 0.05 (H) 0.00 - 0.03 K/uL [facility] (Abs) MAIN-STATION 2 Specimen Blood Performing Organization Address [facility] Phone Number MISYS [facility] MAIN-STATION 2 * UA CHEMISTRIES (02/18/2018 11:17 AM CDT) Color Yellow [facility] MAIN-STATION 2 Clarity Cloudy [facility] MAIN-STATION 2 Specific 1.020 1.001 - 1.035 [facility] [place] MAIN-STATION 2 pH 7.0 5 - 8 [...] MAIN-STATION 2 Specimen Urine Performing Organization Address [facility] Phone Number M[facility]YS [facility] MAIN-STATION 2 after 10/31/2017
--- OUTSIDE RECORDS SUMMARY | 2018-11-01 01:51 | XMS REPORT | Clinical Summary ---
Author Author [facility] Organization [facility] Address Unknown Phone Unavailable Care Team Providers Care Rotor Coil Taper Name Role Phone Sharpless PCP Allergies No [...] 08/14/2018 Emergency Emergency Medicine 08/14/2018 Travel after 10/31/2017 Social History Date Tobacco Use Types Packs/Day Years Used Current Every Day Smoker Smokeless Tobacco: Never Used Alcohol Use Drinks/Week oz/Week Comments Yes Sex Assigned at Date Recorded Not on file Industry Job Start Date Occupation Not on file Not on file Not on file Travel End Travel History Travel Start 08/14/2018 [facility] 07/17/2018 Last Filed Vital Signs Time Taken [...] Not on file Results Not on fileafter 10/31/2017
[2018-11-01 02:34] LABS: BASOPHILS % 0.4 % (0.0-1.0); EOSINOPHILS # (AUTO) 0.3 (0.0-0.4); EOSINOPHILS % 3.2 % (0.0-6.0); HEMOGLOBIN 15.1 g/dL (14.0-18.0); LYMPHOCYTES # (AUTO) 3.1 (1.0-3.2); LYMPHOCYTES % 37.5 % (18.0-39.1); MEAN CORPUSCULAR HEMOGLOBIN 29.8 pg (28-32); MEAN CORPUSCULAR HGB CONC 35.1 g/dL (31-35); MEAN CORPUSCULAR VOLUME 84.8 fL (81-99); MONOCYTES # (AUTO) 0.9 (0.2-0.8); MONOCYTES % 10.3 % (4.4-11.3); NEUTROPHILS % 48.2 % (38.7-80.0); PLATELET COUNT 254 x10e3/uL (140-360); RED BLOOD COUNT 5.07 x10e6/uL (4.3-5.7); RED CELL DISTRIBUTION WIDTH 11.9 % (11.7-14.4)
[2018-11-01 02:49] LABS: ALANINE AMINOTRANSFERASE 82 IU/L (0-55); ALBUMIN 4.3 g/dL (3.5-5.0); ALBUMIN/GLOBULIN RATIO 1.3 (0.8-2.0); ALKALINE PHOSPHATASE 67 IU/L (40-150); AMYLASE 47 U/L (25-125); ANION GAP 11.7 mmol/L (8-16); BLOOD UREA NITROGEN 14 mg/dL (7-26); BUN/CREATININE RATIO 18 (6-25); CALCIUM 9.4 mg/dL (8.4-10.2); CARBON DIOXIDE 25 mmol/L (22-29); CHLORIDE 102 mmol/L (98-107); CREATINE KINASE 112 IU/L (30-200); CREATININE, SERUM 0.77 mg/dL (0.72-1.25); EST GLOMERULAR FILTRATION RATE > 60 ML/MIN (60-); GLUCOSE 100 mg/dL (74-118); LIPASE 21 U/L (8-78); POTASSIUM 3.7 mmol/L (3.5-5.1); SODIUM 135 mmol/L (136-145)
--- NOTE | 2018-11-01 03:43 | Diagnostic Imaging Report ---
EXAMINATION: CHEST SINGLE (NOT PORTABLE) INDICATION: ^chest pain ^[id number] ^2029 ^Y COMPARISON: 10/28/2018 FINDINGS: AP view TUBES and LINES: None. LUNGS: Lungs are well inflated. Lungs are clear. There is no evidence of pneumonia or pulmonary edema. PLEURA: No pleural effusion or pneumothorax. HEART AND MEDIASTINUM: The cardiomediastinal silhouette is unremarkable. BONES AND SOFT TISSUES: No acute osseous lesion. Soft tissues are unremarkable. UPPER ABDOMEN: No free air under the diaphragm. IMPRESSION: No acute thoracic abnormality. Signed by: Dr. Johnathan Langston MD on 11/01/2018 3:39 AM
[2018-11-01 04:54] VITALS: BP 112/68
== END 2018-11-01 05:05 | disposition home or self-care (01) ==
LOC: ER 01:48
DX: R07.89 Other chest pain (principal); R10.13 Epigastric pain; R51 Headache; F41.9 Anxiety disorder, unspecified; R01.1 Cardiac murmur, unspecified
CPT/HCPCS: 36415; 71045; 80053; 82150; 82550; 82553; 83690; 84484; 85025; 93005; 99284

== ENCOUNTER 2018-11-06 00:01 | Emergency (ER) | payer OTHER ==
[~2018-11-06] VITALS: Ht 177.8 cm; Wt 117.9 kg
--- OUTSIDE RECORDS SUMMARY | 2018-11-06 00:04 | XMS REPORT | Clinical Summary ---
Author Author [facility] Organization [facility] Address Unknown Phone Unavailable Care Team Providers Care Gi Technician Name Role Phone PCP Unavailable Allergies No Known Allergies Medications Not on file Active Problems Not on file Encounters Care Team Description Date Type Specialty Kobi Gallardo MD Diarrhea, unspecified type (Primary Dx) 02/18/2018 Emergency Emergency Medicine after 11/05/2017 Social History Date Tobacco Use Types Packs/Day [...] URINALYSIS STAT 02/18/2018 11:17 AM CDT after 11/05/2017 Results * BEDSIDE ULTRASOUND (02/18/2018 2:12 PM [...] [facility]-STATION 4 Specimen Performing Organization Address [facility] Phone Number MISYS [facility] MAIN-STATION 4 * TSH (02/18/2018 12:04 PM CDT) TSH 4.96 (H) 0.57 - 3.74 uIU/mL BT MAIN-STATION 1 Specimen Blood Performing Organization Address [facility] Phone Number MISYS MAIN-STATION 1 * FREE T4 (02/18/2018 12:04 PM CDT) Free T4 0.76 0.61 - 1.18 ng/dl [facility] MAIN-STATION 1 Specimen Blood Performing Organization Address [facility] Phone Number M[facility]YS MAIN-STATION 1 * LIVER PROFILE (02/18/2018 12:04 PM CDT) Protein, Total, 8.2 6.4 - 8.2 g/dL [facility] Serum MAIN-STATION 2 Albumin 4.2 3.4 - [...] MAIN-STATION 2 Specimen Blood Performing Organization Address [facility]/Zipcode Phone Number [facility] MAIN-STATION 2 * LIPASE (02/18/2018 12:04 PM CDT) Lipase 83 73 - 393 U/L [facility] MAIN-STATION 2 Specimen Blood Performing Organization Address [facility] Phone Number [facility] MAIN-STATION 2 * CBC/DIFF (02/18/2018 12:04 PM CDT) WBC 6.6 4.5 - 12.0 K/uL [facility] MAIN-STATION 2 RBC 5.13 4.60 - 6.20 M/uL [facility] MAIN-STATION 2 Hemoglobin 15.0 14.0 - 18.0 g/dL [facility] MAIN-STATION 2 Hematocrit 46.2 40.0 - 54.0 % [facility] MAIN-STATION 2 MCV 90 82 - 92 fL [facility] MAIN-STATION 2 MCH 29.2 27.0 - 31.0 pg LB MAIN-STATION 2 MCHC 32.5 32.0 - 36.0 g/dL [facility] MAIN-STATION 2 RDW 39.8 35.1 - 43.9 fL [facility] MAIN-STATION 2 Platelets 206 150 - 400 K/uL [facility] MAIN-STATION 2 Mean Platelet 10.2 9.4 - [...] Monocytes(Absol 0.62 0.30 - 0.82 K/uL [facility] [place]) MAIN-STATION 2 Eos (Absolute) 0.19 0.04 - 0.54 K/uL [facility] MAIN-STATION 2 Baso (Absolute) 0.02 0.01 - 0.08 K/uL [facility] MAIN-STATION 2 Immature Grans 0.05 (H) 0.00 - 0.03 K/uL [facility] (Abs) MAIN-STATION 2 Specimen Blood Performing Organization Address [facility] Phone Number MISYS [facility] MAIN-STATION 2 * UA CHEMISTRIES (02/18/2018 11:17 AM CDT) Color Yellow [facility] MAIN-STATION 2 Clarity Cloudy [facility] MAIN-STATION 2 Specific 1.020 1.001 - 1.035 [facility] [place] MAIN-STATION 2 pH 7.0 5 - 8 [...] MAIN-STATION 2 Specimen Urine Performing Organization Address [facility] Phone Number MISYS [facility] MAIN-STATION 2 after 11/05/2017
--- OUTSIDE RECORDS SUMMARY | 2018-11-06 00:04 | XMS REPORT | Clinical Summary ---
Author Author [facility] Organization [facility] Address Unknown Phone Unavailable Care Team Providers Care Wire Repairer Name Role Phone Sharpless PCP Allergies No [...] 08/14/2018 Emergency Emergency Medicine 08/14/2018 Travel after 11/05/2017 Social History Date Tobacco Use Types Packs/Day Years Used Current Every Day Smoker Smokeless Tobacco: Never Used Alcohol Use Drinks/Week oz/Week Comments Yes Sex Assigned at Date Recorded Not on file Industry Job Start Date Occupation Not on file Not on file Not on file Travel End Travel History Travel Start 08/14/2018 [facility] 07/17/2018 Last Filed Vital Signs Time [...] Not on file Results Not on fileafter 11/05/2017
== END 2018-11-06 00:30 | disposition left against medical advice (07) ==
LOC: FSED 00:01
DX: K21.0 Gastro-esophageal reflux disease with esophagitis (principal); K29.00 Acute gastritis without bleeding

== ENCOUNTER 2018-11-10 00:38 | Emergency (ER) | payer OTHER ==
[~2018-11-10] VITALS: Ht 177.8 cm; Wt 117.9 kg
--- OUTSIDE RECORDS SUMMARY | 2018-11-10 00:40 | XMS REPORT | Clinical Summary ---
Author Author [facility] Organization [facility] Address Unknown Phone Unavailable Care Team Providers Care Bill Board Poster Name Role Phone Sharpless PCP Allergies No [...] 08/14/2018 Emergency Emergency Medicine 08/14/2018 Travel after 11/09/2017 Social History Date Tobacco Use Types Packs/Day Years Used Current Every Day Smoker Smokeless Tobacco: Never Used Alcohol Use Drinks/Week oz/Week Comments Yes Sex Assigned at Date Recorded Not on file Industry Job Start Date Occupation Not on file Not on file Not on file Travel End Travel History Travel Start 08/14/2018 [facility] 07/17/2018 Last Filed Vital Signs Time Taken [...] Not on file Results Not on fileafter 11/09/2017
--- OUTSIDE RECORDS SUMMARY | 2018-11-10 00:40 | XMS REPORT | Clinical Summary ---
Author Author [facility] Organization [facility] Address Unknown Phone Unavailable Care Team Providers Care Head Grease Maker Name Role Phone PCP Unavailable Allergies No Known Allergies Medications Not on file Active Problems Not on file Encounters Care Team Description Date Type Specialty Kobi Gallardo MD Diarrhea, unspecified type (Primary Dx) 02/18/2018 Emergency Emergency Medicine after 11/09/2017 Social History Date Tobacco Use [...] URINALYSIS STAT 02/18/2018 11:17 AM CDT after 11/09/2017 Results * BEDSIDE ULTRASOUND (02/18/2018 2:12 PM [...] [facility] MAIN-STATION 4 Specimen Performing Organization Address [facility] [facility] MAIN-STATION 4 * TSH (02/18/2018 12:04 PM CDT) TSH 4.96 (H) 0.57 - 3.74 uIU/mL [facility] MAIN-STATION 1 Specimen Blood Performing Organization Address [facility] Phone Number [facility] MAIN-STATION 1 * FREE T4 (02/18/2018 12:04 PM CDT) Free T4 0.76 0.61 - 1.18 ng/dl [facility] MAIN-STATION 1 Specimen Blood Performing Organization Address [facility] [place] Phone Number [facility] MAIN-STATION 1 * LIVER PROFILE (02/18/2018 12:04 PM CDT) Protein, Total, 8.2 6.4 - 8.2 g/dL [facility] Serum MAIN-STATION 2 Albumin 4.2 3.4 [...] MAIN-STATION 2 Specimen Blood Performing Organization Address [facility]/Zipcode Phone Number [facility] MAIN-STATION 2 * LIPASE (02/18/2018 12:04 PM CDT) Lipase 83 73 - 393 U/L LB MAIN-STATION 2 Specimen Blood Performing Organization Address [facility] Phone Number [facility] MAIN-STATION 2 * CBC/DIFF (02/18/2018 12:04 PM CDT) WBC 6.6 4.5 - 12.0 K/uL [facility] MAIN-STATION 2 RBC 5.13 4.60 - 6.20 M/uL [facility] MAIN-STATION 2 Hemoglobin 15.0 14.0 - 18.0 g/dL [facility] MAIN-STATION 2 Hematocrit 46.2 40.0 - 54.0 % [facility] MAIN-STATION 2 MCV 90 82 - 92 fL [facility] MAIN-STATION 2 MCH 29.2 27.0 - 31.0 pg LB MAIN-STATION 2 MCHC 32.5 32.0 - 36.0 g/dL [facility] MAIN-STATION 2 RDW 39.8 35.1 - 43.9 fL [facility] MAIN-STATION 2 Platelets 206 150 - 400 K/uL [facility] MAIN-STATION 2 Mean Platelet 10.2 9.4 [...] Monocytes(Absol 0.62 0.30 - 0.82 K/uL [facility] [place]) MAIN-STATION 2 Eos (Absolute) 0.19 0.04 - 0.54 K/uL [facility] MAIN-STATION 2 Baso (Absolute) 0.02 0.01 - 0.08 K/uL [facility] MAIN-STATION 2 Immature Grans 0.05 (H) 0.00 - 0.03 K/uL [facility] (Abs) MAIN-STATION 2 Specimen Blood Performing Organization Address [facility] Phone Number [facility] MAIN-STATION 2 * UA CHEMISTRIES (02/18/2018 11:17 AM CDT) Color Yellow [facility] MAIN-STATION 2 Clarity Cloudy [facility] MAIN-STATION 2 Specific 1.020 1.001 - 1.035 [facility] [place] MAIN-STATION 2 pH 7.0 5 - 8 [...] MAIN-STATION 2 Specimen Urine Performing Organization Address [facility] Phone Number [facility] MAIN-STATION 2 after 11/09/2017
--- OUTSIDE RECORDS SUMMARY | 2018-11-10 00:41 | XMS REPORT | Clinical Summary ---
Author Author [facility] Organization [facility] Address Unknown Phone Unavailable Care Team Providers Care Research Kennel Supervisor Name Role Phone PCP Unavailable Allergies No Known Allergies Medications Not on file Active Problems Not on file Encounters Care Team Description Date Type Specialty Kobi Gallardo MD Diarrhea, unspecified type (Primary Dx) 02/18/2018 Emergency Emergency Medicine after 11/06/2017 Social History Date Tobacco Use Types Packs/Day [...] URINALYSIS STAT 02/18/2018 11:17 AM CDT after 11/06/2017 Results * BEDSIDE ULTRASOUND (02/18/2018 2:12 PM [...] [facility]IN-STATION 4 Specimen Performing Organization Address [facility] Phone Number [facility] MAIN-STATION 4 * TSH (02/18/2018 12:04 PM CDT) TSH 4.96 (H) 0.57 - 3.74 uIU/mL [facility] MAIN-STATION 1 Specimen Blood Performing Organization Address [facility] Phone Number [facility] MAIN-STATION 1 * FREE T4 (02/18/2018 12:04 PM CDT) Free T4 0.76 0.61 - 1.18 ng/dl [facility] MAIN-STATION 1 Specimen Blood Performing Organization Address [facility] Phone Number [facility] MAIN-STATION 1 * LIVER PROFILE (02/18/2018 12:04 PM CDT) Protein, Total, 8.2 6.4 - 8.2 g/dL [facility] Serum MAIN-STATION 2 Albumin 4.2 3.4 [...] 2 Specimen Blood Performing Organization Address [facility]/Zipcode Phone Number [facility] MAIN-STATION 2 * LIPASE (02/18/2018 12:04 PM CDT) Lipase 83 73 - 393 U/L [facility] MAIN-STATION 2 Specimen Blood Performing Organization Address [facility] Phone Number [facility] MAIN-STATION 2 * CBC/DIFF (02/18/2018 12:04 PM CDT) WBC 6.6 4.5 - 12.0 K/uL [facility] MAIN-STATION 2 RBC 5.13 4.60 - 6.20 M/uL [facility] MAIN-STATION 2 Hemoglobin 15.0 14.0 - 18.0 g/dL [facility] MAIN-STATION 2 Hematocrit 46.2 40.0 - 54.0 % [facility] MAIN-STATION 2 MCV 90 82 - 92 fL [facility] MAIN-STATION 2 MCH 29.2 27.0 - 31.0 pg LB MAIN-STATION 2 MCHC 32.5 32.0 - 36.0 g/dL [facility] MAIN-STATION 2 RDW 39.8 35.1 - 43.9 fL [facility] MAIN-STATION 2 Platelets 206 150 - 400 K/uL [facility] MAIN-STATION 2 Mean Platelet 10.2 9.4 [...] Monocytes(Absol 0.62 0.30 - 0.82 K/uL [facility] [place]) MAIN-STATION 2 Eos (Absolute) 0.19 0.04 - 0.54 K/uL [facility] MAIN-STATION 2 Baso (Absolute) 0.02 0.01 - 0.08 K/uL [facility] MAIN-STATION 2 Immature Grans 0.05 (H) 0.00 - 0.03 K/uL [facility] (Abs) MAIN-STATION 2 Specimen Blood Performing Organization Address [facility] Phone Number [facility] MAIN-STATION 2 * UA CHEMISTRIES (02/18/2018 11:17 AM CDT) Color Yellow [facility] MAIN-STATION 2 Clarity Cloudy [facility] MAIN-STATION 2 Specific 1.020 1.001 - 1.035 [facility] [place] MAIN-STATION 2 pH 7.0 5 - 8 [...] 2 Specimen Urine Performing Organization Address [facility] Phone Number [facility] MAIN-STATION 2 after 11/06/2017
--- OUTSIDE RECORDS SUMMARY | 2018-11-10 00:41 | XMS REPORT | Clinical Summary ---
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 Role Phone PCP Unavailable Allergies No Known Allergies Medications Not on file Active Problems Not on file Encounters Care Team Description Date Type Specialty Kobi Gallardo MD Diarrhea, unspecified type (Primary Dx) 02/18/2018 Emergency Emergency Medicine after 11/07/2017 Social History Date Tobacco Use Types Packs/Day [...] URINALYSIS STAT 02/18/2018 11:17 AM CDT after 11/07/2017 Results * BEDSIDE ULTRASOUND (02/18/2018 2:12 PM [...] Organization Address [facility] Phone Number MIS[facility] MAIN-STATION 4 * TSH (02/18/2018 12:04 PM CDT) TSH 4.96 (H) 0.57 - 3.74 uIU/mL [facility] MAIN-STATION 1 Specimen Blood Performing Organization Address [facility] Phone Number [facility] MAIN-STATION 1 * FREE T4 (02/18/2018 12:04 PM CDT) Free T4 0.76 0.61 - 1.18 ng/dl [facility] MAIN-STATION 1 Specimen Blood Performing Organization Address [facility] Phone Number [facility] MAIN-STATION 1 * LIVER [...] Organization Address [facility]/Zipcode Phone Number [facility] MAIN-STATION 2 * LIPASE (02/18/2018 12:04 PM CDT) Lipase 83 73 - 393 U/L [facility] MAIN-STATION 2 Specimen Blood Performing Organization Address [facility] Phone Number [facility] MAIN-STATION 2 * CBC/DIFF (02/18/2018 12:04 PM [...] Monocytes(Absol 0.62 0.30 - 0.82 K/uL [facility] [place]) MAIN-STATION 2 Eos (Absolute) 0.19 0.04 - 0.54 K/uL [facility] MAIN-STATION 2 Baso (Absolute) 0.02 0.01 - 0.08 K/uL [facility] MAIN-STATION 2 Immature Grans 0.05 (H) 0.00 - 0.03 K/uL [facility] (Abs) MAIN-STATION 2 Specimen Blood Performing Organization Address [facility] Phone Number [facility] MAIN-STATION 2 * UA CHEMISTRIES (02/18/2018 11:17 AM CDT) Color Yellow [facility] MAIN-STATION 2 Clarity Cloudy [facility] MAIN-STATION 2 Specific 1.020 1.001 - 1.035 [facility] [place] MAIN-STATION 2 pH 7.0 5 - 8 [...] Organization Address [facility] Phone Number [facility] MAIN-STATION 2 after 11/07/2017
--- OUTSIDE RECORDS SUMMARY | 2018-11-10 00:41 | XMS REPORT | Continuity of Care Document ---
Author Author [facility] Interface Address Unknown Phone Unavailable Problems Problem Status Onset Date Classification Date Reported Comments Source Diarrhea, unspecified type Active 11/09/2018 [facility] Medications Medication Details Route Status Patient Instructions Ordering Provider Order Date Source Allergies, Adverse Reactions, Alerts Substance Category Reaction Severity Reaction type Status Date Reported Comments Source No Known Drug Allergies Unknown Allergy to Substance Active 11/01/2018 [facility] Immunizations Immunization Date Given Site Status Last Updated Comments Source Results Order Name Results Value Reference Range Date Interpretation Comments Source Blood leukocytes automated count (number/volume) 8.37 4.8 - 10.8 11/01/2018 [facility] Blood erythrocytes automated count (number/volume) 5.07 4.3 - 5.7 11/01/2018 [facility] Blood hemoglobin measurement (moles/volume) 15.1 14.0 - 18.0 11/01/2018 [facility] Automated blood hematocrit (volume fraction) 43.0 38.2 - 49.6 11/01/2018 [facility] Automated erythrocyte mean corpuscular volume 84.8 81 - 99 11/01/2018 [facility] Automated erythrocyte mean corpuscular hemoglobin (mass per erythrocyte) 29.8 28 - 32 11/01/2018 [facility] Automated erythrocyte mean corpuscular hemoglobin concentration measurement (mass/volume) 35.1 31 - 35 11/01/2018 [facility] RDW BldCo-Rto 11.9 11.7 - 14.4 11/01/2018 [facility] Automated blood platelet count (count/volume) 254 140 - 360 11/01/2018 [facility] Automated blood segmented neutrophil count as percentage of total leukocytes 48.2 38.7 - 80.0 11/01/2018 [facility] Automated blood lymphocyte count as percentage ot total leukocytes 37.5 18.0 - 39.1 11/01/2018 [facility] Automated blood monocyte count as percentage of total leukocytes 10.3 4.4 - 11.3 11/01/2018 [facility] Automated blood eosinophil count as percentage of total leukocytes 3.2 0.0 - 6.0 11/01/2018 [facility] Automated blood basophil count as percentage of total leukocytes 0.4 0.0 - 1.0 11/01/2018 [facility] IM GRANULOCYTES % 0.4 0.0 - 1.0 11/01/2018 [facility] Automated blood neutrophil count 4.0 2.1 - 6.9 11/01/2018 [facility] Blood lymphocytes count (number/volume) 3.1 1.0 - 3.2 11/01/2018 [facility] Blood monocytes automated count (number/volume) 0.9 0.2 - 0.8 11/01/2018 [facility] Automated blood eosinophil count 0.3 0.0 - 0.4 11/01/2018 [facility] Automated blood basophil count (count/volume) 0.0 0.0 - 0.1 11/01/2018 [facility] Absolute Immature Granulocyte (auto 0.03 0 - 0.1 11/01/2018 [facility] Serum or plasma sodium measurement (moles/volume) 135 136 - 145 11/01/2018 [facility] Serum or plasma potassium measurement (moles/volume) 3.7 3.5 - 5.1 11/01/2018 [facility] Serum or plasma chloride measurement (moles/volume) 102 98 - 107 11/01/2018 [facility] Serum or plasma carbon dioxide, total measurement (moles/volume) 25 22 - 29 11/01/2018 [facility] Serum or plasma anion gap 11.7 8 - 16 11/01/2018 [facility] Serum or plasma urea nitrogen measurement (mass/volume) 14 7 - 26 11/01/2018 [facility] Serum or plasma creatinine measurement (mass/volume) 0.77 0.72 - 1.25 11/01/2018 [facility] Serum or plasma urea nitrogen/creatinine mass ratio 18 6 - 25 11/01/2018 [facility] Estimated glomerular filtration rate (GFR) determination > 60 60 11/01/2018 [facility] Glucose measurement 100 74 - 118 11/01/2018 [facility] Serum or plasma calcium measurement (mass/volume) 9.4 8.4 - 10.2 11/01/2018 [facility] Serum or plasma total bilirubin measurement (mass/volume) 0.5 0.2 - 1.2 11/01/2018 [facility] Aspartate Amino Transf (AST/SGOT) 34 5 - 34 11/01/2018 [facility] Serum or plasma alanine aminotransferase measurement (enzymatic activity/volume) 82 0 - 55 11/01/2018 [facility] Serum or plasma protein measurement (mass/volume) 7.6 6.5 - 8.1 11/01/2018 [facility] Serum or plasma albumin measurement (mass/volume) 4.3 3.5 - 5.0 11/01/2018 [facility] Plasma globulin measurement (mass/volume) 3.3 2.3 - 3.5 11/01/2018 [facility] Serum or plasma albumin/globulin mass ratio 1.3 0.8 - 2.0 11/01/2018 [facility] Serum or plasma alkaline phosphatase measurement (enzymatic activity/volume) 67 40 - 150 11/01/2018 [facility] Serum or plasma creatine kinase measurement (enzymatic activity/volume) 112 30 - 200 11/01/2018 [facility] Serum or plasma creatine kinase MB measurement (mass/volume) 0.90 0 - 5.0 11/01/2018 [facility] Troponin I measurement by highly sensitive enzyme immunoassay 0.002 0 - 0.300 11/01/2018 [facility] Serum or plasma amylase measurement (enzymatic activity/volume) 47 25 - 125 11/01/2018 [facility] Serum or plasma lipase measurement (enzymatic activity/volume) 21 8 - 78 11/01/2018 [facility] Urine color determination YELLOW YELLOW 10/28/2018 [facility] Urine clarity CLOUDY CLEAR 10/28/2018 [facility] Specific gravity of Urine by Test strip 1.020 1.010 - 1.025 10/28/2018 [facility] Urine pH measurement by automated test strip 7 5 - 7 10/28/2018 [facility] Urine leukocyte esterase detection by automated test strip NEGATIVE NEGATIVE 10/28/2018 [facility] Urine nitrite detection by automated test strip NEGATIVE NEGATIVE 10/28/2018 [facility] Urine protein detection by automated test strip NEGATIVE NEGATIVE 10/28/2018 [facility] Urine glucose detection by automated test strip NEGATIVE NEGATIVE 10/28/2018 [facility] Urine ketones detection by automated test strip NEGATIVE NEGATIVE 10/28/2018 [facility] Urine opiates screening test NEGATIVE NEGATIVE 10/28/2018 [facility] Barbiturates screen, urine POSITIVE NEGATIVE 10/28/2018 [facility] Urine phencyclidine detection by screening method NEGATIVE NEGATIVE 10/28/2018 [facility] Urine amphetamines detection by screen method > 1000 ng/mL NEGATIVE NEGATIVE 10/28/2018 [facility] Urine Methamphetamines Screen NEGATIVE NEGATIVE 10/28/2018 [facility] Urine benzodiazepines detection by screening method POSITIVE NEGATIVE 10/28/2018 [facility] Urine cocaine measurement (mass/volume) NEGATIVE NEGATIVE 10/28/2018 [facility] Urine cannabinoids detection by screening method NEGATIVE NEGATIVE 10/28/2018 [facility] Urine methadone screen NEGATIVE NEGATIVE 10/28/2018 [facility] Urine urobilinogen measurement by test strip (mass/volume) 0.2 0.2 - 1 10/28/2018 [facility] Urine total bilirubin detection NEGATIVE NEGATIVE 10/28/2018 [facility] Urine erythrocytes detection NEGATIVE NEGATIVE 10/28/2018 [facility] Automated urine sediment leukocyte count by microscopy (number/high power field) 6-10 0 - 5 10/28/2018 [facility] Erythrocytes detection in urine sediment by light microscopy 0-5 0 - 5 10/28/2018 [facility] Bacteria detection in urine sediment by light microscopy MANY NONE 10/28/2018 [facility] Epithelial cells detection in urine sediment by light microscopy FEW NONE 10/28/2018 [facility] Amorphous sediment detection in urine sediment by light microscopy MANY FEW 10/28/2018 [facility] Fibrin D-dimer DDU measurement in platelet poor plasma (mass/volume) 0.48 0.00 - 0.45 10/28/2018 [facility] FREE T4 Free T4 0.76 ng/dl 0.61 - 1.18 02/18/2018 [facility] TSH <td ID="[id number]">TSH</td><td><span style="flagData">4.96</span><span style="flagData"> (H)</span></td><td>0.57 - 3.74 uIU/mL</td><td>[facility] MAIN-STATION 1</td><td ID="[id number]"/> 4.96 0.57 - 3.74 02/18/2018 [facility] TSH Lab Interpretation Abnormal 02/18/2018 [facility] HIV-1/HIV-2 ROUTINE SCREENING <td ID="[id number]">HIV-1/HIV-2</td><td>Negative</td><td>NEG</td><td>[facility] MAIN-STATION 4</td><td ID="[id number]"/> Negative NEG 02/18/2018 [facility] BEDSIDE ULTRASOUND <p>Cassandra Couch PA 02/18/20182:25 [...] No sludge, PCCF. CBD not visualized. 02/18/2018 [facility] LIPASE <td ID="[id number]">Lipase</td><td>83</td><td>73 - 393 U/L</td><td>[facility] MAIN-STATION 2</td><td ID="[id number]"/> 83 U/L 73 - 393 02/18/2018 [facility] LIVER PROFILE <td ID="Drtqmy241080209Afob4Kmlk">Protein, Total, Serum</td><td>8.2</td><td>6.4 - 8.2 g/dL</td><td>[facility] MAIN-STATION 2</td><td ID="[id number]"/> 8.2 g/dL 6.4 - 8.2 02/18/2018 [facility] LIVER PROFILE <td ID="[id number]">Albumin</td><td>4.2</td><td>3.4 - 5.0 g/dL</td><td>[facility] MAIN-STATION 2</td><td ID="[id number]"/> 4.2 g/dL 3.4 - 5 02/18/2018 [facility] LIVER PROFILE <td ID="[id number]">Bilirubin, Total</td><td>0.4</td><td>0.2 - 1.0 mg/dL</td><td>[facility] MAIN-STATION 2</td><td ID="[id number]"/> 0.4 mg/dL 0.2 - 1 02/18/2018 [facility] LIVER PROFILE <td ID="[id number]">Alkaline Phosphatase, S</td><td>77</td><td>45 - 117 U/L</td><td>[facility] MAIN-STATION 2</td><td ID="Maxiss499697912Pchw0Ndynzsorm"/> 77 U/L 45 - 117 02/18/2018 [facility] LIVER PROFILE <td ID="[id number]">AST (SGOT)</td><td><span style="flagData">50</span><span style="flagData"> (H)</span></td><td>15 - 37 U/L</td><td>[facility] MAIN-STATION 2</td><td ID="[id number]"/> 50 U/L 15 - 37 02/18/2018 [facility] LIVER PROFILE <td ID="Uilgha277415013Ssjf1Ggfw">ALT</td><td>61</td><td>12 - 78 U/L</td><td>[facility] MAIN-STATION 2</td><td ID="[id number]"/> 61 U/L 12 - 78 02/18/2018 [facility] LIVER PROFILE <td ID="[id number]">D Bilirubin</td><td><0.1</td><td>0.0 - 0.2 mg/dL</td><td>[facility] MAIN-STATION 2</td><td ID="[id number]"/> <0.1 0 - 0.2 02/18/2018 [facility] LIVER PROFILE Lab Interpretation Abnormal 02/18/2018 [facility] CBC/DIFF <td ID="[id number]">WBC</td><td>6.6</td><td>4.5 - 12.0 K/uL</td><td>[facility] MAIN-STATION 2</td><td ID="Msoivg962008978Rwhh3Dkodwgqxi"/> 6.6 K/uL 4.5 - 12 02/18/2018 [facility] CBC/DIFF <td ID="[id number]">RBC</td><td>5.13</td><td>4.60 - 6.20 M/uL</td><td>[facility] MAIN-STATION 2</td><td ID="[id number]"/> 5.13 4.60 - 6.20 02/18/2018 [facility] CBC/DIFF <td ID="[id number]">Hemoglobin</td><td>15.0</td><td>14.0 - 18.0 g/dL</td><td>[facility] MAIN-STATION 2</td><td ID="Yrebjh720352384Oclv0Tjdpuutrc"/> 15.0 g/dL 14 - 18 02/18/2018 [facility] CBC/DIFF <td ID="Mhvirv129629326Udeb5Rphk">Hematocrit</td><td>46.2</td><td>40.0 - 54.0 %</td><td>[facility] MAIN-STATION 2</td><td ID="[id number]"/> 46.2 % 40 - 54 02/18/2018 [facility] CBC/DIFF <td ID="[id number]">MCV</td><td>90</td><td>82 - 92 fL</td><td>[facility] MAIN-STATION 2</td><td ID="Bfjaik502641883Fkrq1Ksrtddfer"/> 90 fL 82 - 92 02/18/2018 [facility] CBC/DIFF <td ID="Gvqofs122407961Qcbk3Cuwd">MCH</td><td>29.2</td><td>27.0 - 31.0 pg</td><td>[facility] MAIN-STATION 2</td><td ID="[id number]"/> 29.2 pg 27 - 31 02/18/2018 [facility] CBC/DIFF <td ID="[id number]">MCHC</td><td>32.5</td><td>32.0 - 36.0 g/dL</td><td>[facility] MAIN-STATION 2</td><td ID="[id number]"/> 32.5 g/dL 32 - 36 02/18/2018 [facility] CBC/DIFF <td ID="[id number]">RDW</td><td>39.8</td><td>35.1 - 43.9 fL</td><td>[facility] MAIN-STATION 2</td><td ID="[id number]"/> 39.8 fL 35.1 - 43.9 02/18/2018 [facility] CBC/DIFF <td ID="[id number]">Platelets</td><td>206</td><td>150 - 400 K/uL</td><td>[facility] MAIN-STATION 2</td><td ID="[id number]"/> 206 K/uL 150 - 400 02/18/2018 [facility] CBC/DIFF <td ID="[id number]">Mean Platelet Volume</td><td>10.2</td><td>9.4 - 12.4 fL</td><td>[facility] MAIN-STATION 2</td><td ID="[id number]"/> 10.2 fL 9.4 - 12.4 02/18/2018 [facility] CBC/DIFF Percent NRBC 0.0 02/18/2018 [facility] CBC/DIFF Absolute NRBC 0.00 02/18/2018 [facility] CBC/DIFF <td ID="[id number]">Neutrophils</td><td>59.3</td><td>34.0 - 67.9 %</td><td>[facility] MAIN-STATION 2</td><td ID="[id number]"/> 59.3 % 34 - 67.9 02/18/2018 [facility] CBC/DIFF <td ID="[id number]">Lymphs</td><td>27.3</td><td>21.8 - 50.0 %</td><td>[facility] MAIN-STATION 2</td><td ID="[id number]"/> 27.3 % 21.8 - 50 02/18/2018 [facility] CBC/DIFF <td ID="[id number]">Monocytes</td><td>9.4</td><td>5.3 - 12.0 %</td><td>[facility] MAIN-STATION 2</td><td ID="[id number]"/> 9.4 % 5.3 - 12 02/18/2018 [facility] CBC/DIFF <td ID="[id number]">Eos</td><td>2.9</td><td>0.8 - 5.0 %</td><td>[facility] MAIN-STATION 2</td><td ID="[id number]"/> 2.9 % 0.8 - 5 02/18/2018 [facility] CBC/DIFF <td ID="[id number]">Basos</td><td>0.3</td><td>0.2 - 1.2 %</td><td>[facility] MAIN-STATION 2</td><td ID="[id number]"/> 0.3 % 0.2 - 1.2 02/18/2018 [facility] CBC/DIFF Immature Granulocytes 0.8 0.0 - 0.5 02/18/2018 [facility] CBC/DIFF Neutrophils (Absolute) 3.93 K/uL 1.78 - 5.36 02/18/2018 [facility] CBC/DIFF Lymphs (Absolute) 1.81 K/uL 1.32 - 3.57 02/18/2018 [facility] CBC/DIFF Monocytes(Absolute) 0.62 K/uL 0.3 - 0.82 02/18/2018 [facility] CBC/DIFF Eos (Absolute) 0.19 K/uL 0.04 - 0.54 02/18/2018 [facility] CBC/DIFF Baso (Absolute) 0.02 K/uL 0.01 - 0.08 02/18/2018 [facility] CBC/DIFF Immature Grans (Abs) 0.05 K/uL 0 - 0.03 02/18/2018 [facility] CBC/DIFF Lab Interpretation Abnormal 02/18/2018 [facility] UA CHEMISTRIES <td ID="[id number]">Color</td><td>Yellow</td><td/><td>[facility] MAIN-STATION 2</td><td ID="[id number]"/> Yellow 02/18/2018 [facility] UA CHEMISTRIES Clarity Cloudy 02/18/2018 [facility] UA CHEMISTRIES <td ID="[id number]">Specific [place]</td><td>1.020</td><td>1.001 - 1.035</td><td>[facility] MAIN-STATION 2</td><td ID="[id number]"/> 1.020 1.001 - 1.035 02/18/2018 [facility] UA CHEMISTRIES <td ID="[id number]">pH</td><td>7.0</td><td>5 - 8</td><td>[facility] MAIN-STATION 2</td><td ID="[id number]"/> 7.0 5 - 8 02/18/2018 [facility] UA CHEMISTRIES <td ID="[id number]">Protein</td><td>Negative</td><td>NEG</td><td>[facility] MAIN-STATION 2</td><td ID="[id number]"/> Negative NEG 02/18/2018 [facility] UA CHEMISTRIES <td ID="[id number]">Glucose</td><td>Negative</td><td>NEG</td><td>[facility] MAIN-STATION 2</td><td ID="[id number]"/> Negative NEG 02/18/2018 [facility] UA CHEMISTRIES <td ID="[id number]">Ketones</td><td>Negative</td><td>NEG</td><td>[facility] MAIN-STATION 2</td><td ID="[id number]"/> Negative NEG 02/18/2018 [facility] UA CHEMISTRIES <td ID="[id number]">Bilirubin</td><td>Negative</td><td>NEG</td><td>[facility] MAIN-STATION 2</td><td ID="[id number]"/> Negative NEG 02/18/2018 [facility] UA CHEMISTRIES <td ID="[id number]">Nitrate</td><td>Negative</td><td>NEG</td><td>[facility] MAIN-STATION 2</td><td ID="[id number]"/> Negative NEG 02/18/2018 [facility] UA CHEMISTRIES <td ID="[id number]">Urobilinogen,Semi- Qn</td><td><1.0</td><td>0.2 - 1.0 EU/dL</td><td>[facility] MAIN-STATION 2</td><td ID="[id number]"/> <1.0 0.2 - 1 02/18/2018 [facility] UA CHEMISTRIES <td ID="[id number]">Leukocyte</td><td>Negative</td><td>NEG</td><td>[facility] MAIN-STATION 2</td><td ID="[id number]"/> Negative NEG 02/18/2018 [facility] UA CHEMISTRIES Occult Blood Negative NEG 02/18/2018 [facility] Vital Signs Vital Sign Value Date Comments Source Systolic (mm Hg) 125 02/18/2018 [facility] Diastolic (mm Hg) 78 02/18/2018 [facility] Heart Rate 62 02/18/2018 [facility] Temperature Oral (F) 36.78 Rupal 02/18/2018 [facility] Respitory Rate 16 02/18/2018 [facility] Systolic (mm Hg) 143 02/18/2018 [facility] Diastolic (mm Hg) 99 02/18/2018 [facility] Heart Rate 67 02/18/2018 [facility] Temperature Oral (F) 36.89 Rupal 02/18/2018 [facility] Respitory Rate 18 02/18/2018 [facility] Weight 122.426 02/18/2018 [facility] Encounters Location Location Details Encounter Type Encounter Number Reason For Visit Attending Provider ADM Date DC Date Status Source Emergency Center ([id number]) [facility] Emergency [id number] Kobi Gallardo MD 02/18/2018 02/18/2018 [facility] Departed Emergency Room [id number] DUDLEY HOPE MD 10/28/2018 10/28/2018 [facility] Departed Emergency Room [id number] DUDLEY HOPE MD 11/01/2018 11/01/2018 [facility] Departed Emergency Room [id number] MARK CARTER MD 11/06/2018 11/06/2018 [facility] Procedures Procedure Code Date Perfomer Comments Source X-ray of chest, single view [id number] 11/01/2018 [facility] Computed tomography of chest with contrast [id number] 10/28/2018 [facility] BEDSIDE ULTRASOUND [id number] 02/19/[address] [facility] LIVER PROFILE [id number] 02/18/[address] [facility] LIPASE [id number] 02/18/[address] [facility] TSH [id number] 02/18/[address] [facility] FREE T4 [id number] 02/18/[address] [facility] CBC/DIFF [id number] 02/18/[address] [facility] HIV-1/HIV-2 ROUTINE SCREENING [id number] 02/18/[address] [facility] THYROID STIMULATING HORMONE (TSH) [id number] 02/18/[address] [facility] UA CHEMISTRIES [id number] 02/18/2018 [facility] URINALYSIS [id number] 02/18/2018 [facility]
== END 2018-11-10 01:20 | disposition left against medical advice (07) ==
LOC: FSED 00:38
DX: R51 Headache (principal)